=== PATIENT | female | born 1980 | race African-American/Black ===

== ENCOUNTER 2017-05-06 18:15 | Emergency (ER) | payer OTHER, MEDICAID ==
[~2017-05-06] VITALS: Ht 177.8 cm; Wt 84.0 kg
[~2017-05-06 18:15] MED LIST: UNK ANTIBIOTIC
[2017-05-06 18:28] VITALS: BP 119/79
== END 2017-05-06 22:00 | disposition left against medical advice (07) ==
LOC: ER 18:15
DX: S69.92XA Unspecified injury of left wrist, hand and finger(s), initial encounter (principal); V89.2XXA Person injured in unspecified motor-vehicle accident, traffic, initial encounter; Y93.89 Activity, other specified; Y92.89 Other specified places as the place of occurrence of the external cause; Y99.8 Other external cause status
CPT/HCPCS: 99281

== ENCOUNTER 2017-05-08 19:43 | Emergency (ER) | payer OTHER, MEDICAID ==
[~2017-05-08] VITALS: Ht 177.8 cm; Wt 82.0 kg
[2017-05-08 20:14] VITALS: BP 115/59
[2017-05-08] MEDS ORDERED: IBUPROFEN 400MG TABLET ONE (20:14)
[2017-05-08] MEDS ORDERED: IBUPROFEN 400MG TABLET PO ONE (20:15)
== END 2017-05-09 00:54 | disposition home or self-care (01) ==
LOC: ER 20:25
DX: M25.532 Pain in left wrist (principal); M79.89 Other specified soft tissue disorders; F17.200 Nicotine dependence, unspecified, uncomplicated; V89.2XXA Person injured in unspecified motor-vehicle accident, traffic, initial encounter; Y93.89 Activity, other specified; Y92.89 Other specified places as the place of occurrence of the external cause; Y99.8 Other external cause status
CPT/HCPCS: 73110; 81025; 99284

== ENCOUNTER 2017-05-16 22:49 | Emergency (ER) | payer OTHER, MEDICAID ==
[~2017-05-16] VITALS: Ht 177.8 cm; Wt 82.0 kg
[2017-05-17] MEDS ORDERED: IBUPROFEN 600MG TABLET PO ONE (06:30)
[2017-05-17 07:58] LABS: CHLORIDE 110 mEq/L (98-107)
[2017-05-17 08:04] LABS: BASOPHILS % 0.9 % (0.0-2.0); EOSINOPHILS % 3.7 % (0.0-5.0); HEMATOCRIT. 35.4 % (36.0-48.0); HEMOGLOBIN. 12.3 g/dL (12.0-16.0); LYMPHOCYTES % 40.7 % (20.0-50.0); MEAN CORPUSCULAR HEMOGLOBIN 31.8 pg (28.0-32.0); MEAN CORPUSCULAR VOLUME 91.6 fL (81.0-99.0); MEAN PLATELET VOLUME 9.2 fl (7.4-10.4); NEUTROPHILS % 44.7 % (40.0-76.0); PLATELET 202 x1000/uL (130-400); RED BLOOD CELL COUNT 3.87 mill/uL (4.2-5.4); RED CELL DISTRIBUTION WIDTH 13.3 % (11.6-14.6)
[2017-05-17 08:11] VITALS: BP 107/70
== END 2017-05-17 08:24 | disposition home or self-care (01) ==
LOC: ER 22:49
DX: M25.473 Effusion, unspecified ankle (principal); M25.572 Pain in left ankle and joints of left foot; M25.571 Pain in right ankle and joints of right foot
CPT/HCPCS: 36415; 80048; 83880; 85025; 99284

== ENCOUNTER 2018-02-02 20:11 | Emergency (ER) | payer MEDICAID, OTHER ==
[~2018-02-02] VITALS: Ht 177.8 cm; Wt 82.0 kg
[2018-02-02 20:16] VITALS: BP 120/70
== END 2018-02-02 23:15 | disposition left against medical advice (07) ==
LOC: ER 20:11
DX: M79.662 Pain in left lower leg (principal); Z53.21 Procedure and treatment not carried out due to patient leaving prior to being seen by health care provider
CPT/HCPCS: 81025

== ENCOUNTER 2023-09-21 21:45 | Emergency (ER) | payer BC, OTHER ==
[~2023-09-21] VITALS: Ht 180.3 cm; Wt 81.0 kg
[2023-09-21 22:07] VITALS: BP 131/83; PULSE 86; RESP 20; TEMP 98.3; O2SAT 100
[2023-09-22] MEDS ORDERED: IBUP-2030 MT (00:12)
== END 2023-09-22 01:55 | disposition home or self-care (01) ==
LOC: ER 21:45
DX: S80.12XA Contusion of left lower leg, initial encounter (principal); S80.11XA Contusion of right lower leg, initial encounter; F12.10 Cannabis abuse, uncomplicated; X58.XXXA Exposure to other specified factors, initial encounter; Y93.89 Activity, other specified; Y92.89 Other specified places as the place of occurrence of the external cause; Y99.8 Other external cause status
CPT/HCPCS: 99282

== ENCOUNTER 2024-06-16 19:21 | Emergency (ER) | payer BC ==
[~2024-06-16] VITALS: Ht 180.3 cm; Wt 97.6 kg
[~2024-06-16 19:21] MED LIST changes: +IBUP-2030 MT
[2024-06-16 19:37] VITALS: TEMP 37.4; O2SAT 100
[2024-06-17] MEDS: KETOROLAC 30MG/ML VIAL IM STA (00:22)
[2024-06-17] MEDS ORDERED: AZIT500T8 MT (00:23)
[2024-06-17] MEDS ORDERED: KETO10TA2 MT (00:24)
[2024-06-17] MEDS ORDERED: PRED10TA MT (00:24)
[2024-06-17] MEDS: PREDNISONE 20MG TABLET PO ONE (00:30)
[2024-06-17 02:01] VITALS: BP 144/84; PULSE 77; RESP 18; O2SAT 98
== END 2024-06-17 02:02 | disposition home or self-care (01) ==
LOC: ER 19:21
DX: J02.9 Acute pharyngitis, unspecified (principal)
CPT/HCPCS: 99283; 96372; J1885; J7512

== ENCOUNTER 2024-09-02 23:41 | Emergency (ER) | payer BC, MEDICAID ==
[~2024-09-02] VITALS: Ht 177.8 cm; Wt 82.0 kg
[~2024-09-02 23:41] MED LIST changes: +AZIT500T8 MT; +KETO10TA2 MT; +PRED10TA MT
[2024-09-02 23:55] VITALS: O2SAT 100
[2024-09-02 23:57] VITALS: BP 121/76; PULSE 76; RESP 16; TEMP 36.7; O2SAT 100
[2024-09-03] MEDS ORDERED: ACETAMINOPHEN 325MG TABLET PO ONE (00:45)
== END 2024-09-03 00:59 | disposition home or self-care (01) ==
LOC: ER 23:41
DX: S90.921A Unspecified superficial injury of right foot, initial encounter (principal); F12.90 Cannabis use, unspecified, uncomplicated; W57.XXXA Bitten or stung by nonvenomous insect and other nonvenomous arthropods, initial encounter; Y93.89 Activity, other specified; Y92.89 Other specified places as the place of occurrence of the external cause; Y99.8 Other external cause status
CPT/HCPCS: 99282